=== PATIENT | female | born 1970 ===

== ENCOUNTER 2021-10-27 09:01 | Day surgery (SDC) | payer OTHER ==
[~2021-10-27 09:01] MED LIST: SODIUM CHLORIDE 0.9% 1000 ML 1,000 ML IV SCH
[2021-10-27] MEDS ORDERED: ONDANSETRON 4 MG/2 ML INJ ONE (09:43)
[2021-10-27] MEDS ORDERED: fentaNYL 100 MCG/2 ML INJ ONE (09:44)
[2021-10-27] MEDS ORDERED: propofoL 200 MG/20 ML VIAL IV ONE ×3 (10:34→13:51)
--- NOTE | 2021-10-27 10:56 | Procedure Note ---
Date of procedure: 10/27/21 Pre-op diagnosis: GERD/ Dyspepsia/ NSAID use/ Colon Polyp screening/ Abdominal Pain Post-op diagnosis: other (Mild to Moderate Erosive esophagitis/ R/o Eosinophilic esophaagitis/ Gastritis/ R/O Celiac Disease/ R/O Microscopic Colitis/ R/O Ileitis/ No Colon Polyps/ Few, Left Colon Diverticuli/ Minor, Internal Hemorrhoids) Procedure: EGD with Biopsy/ Colonoscopy with Biopsy Anesthesia: [facility] – [place] Surgeon: MINERVA LANDEROS Estimated blood loss: minimal Pathology: list Specimen disposition: to lab Condition: stable Disposition: same day (Treat with PPI, Bentyl prn, OTC Probiotic. Avoid aspirin and NSAID for 2 weeks, otherwise resume previous medication and F/U in 1 to 2 weeks ([phone]).)
--- NOTE | 2021-10-27 11:58 | Operative Report ---
DATE OF SURGERY: 10/27/2021 PROCEDURE PERFORMED: EGD with biopsy. INDICATIONS: This is a 51-year-old white, slightly obese white female with a history of taking Goody powders who has been having GERD symptoms and dyspeptic symptoms. EGD was done to assess for any significant upper GI pathology. DESCRIPTION OF PROCEDURE: Procedure was done after getting informed consent with MAC anesthesia. The instrument was passed through the hypopharynx into the esophagus, which showed some pmgj-jq-tldzefsl distal erosive esophagitis. Photodocumentation and biopsy was done from the distal esophagus to assess for the severity of the erosive esophagitis and from the mid esophagus to rule out for eosinophilic esophagitis. Stomach did not show any gastric ulcers in the straight or the retroverted view. Pylorus is patent. Duodenum in the first and second portion appeared normal. Biopsy was done from the second part to rule out for possible celiac disease. Additional biopsy was done from the gastric antrum, gastric body and angular incisura to rule out for H. pylori and atrophic gastritis. There was some antral gastritis noted. ASSESSMENT: 1. Gastroesophageal reflux disease symptoms, dyspepsia, and history of non-steroidal antiinflammatory drugs use. 2. Sslf-ju-gwpxngac erosive esophagitis. 3. Rule out eosinophilic esophagitis. 4. Gastritis. 5. Rule out celiac disease. 6. No peptic ulcer disease noted. PLAN: To treat the patient with PPI, have the patient avoid aspirin and aspirin-related products for the next 2 weeks. Otherwise, resume previous medication. Colonoscopy will be done as part of colon polyp screening and because of complaints of abdominal pain and the patient will be asked to follow up in the office in 1-2 weeks' time. Procedure was done in the GI lab with assistance of the GI lab team, which included the GI nurse, the dietetic technician registered and with assistance of anesthesia. TID: [id number] RECEIPT: [id number] CHRISTIE/DINAH
--- NOTE | 2021-10-27 18:38 | Anesthesia Day of Surgery ---
Anesthesia Day of Surgery - Day of Surgery Patient Examined: Yes Patient H&P Reviewed: Yes Patient is NPO: Yes
--- NOTE | 2021-10-27 18:40 | Post Anesthesia Evaluation ---
- Post Anesthesia Evaluation Patient Participated: Yes Airway Patent: Yes Stable Respiratory Function: Yes Nausea/Vomiting: No Temp > 96.8F: Yes Pain Manageable: Yes Adequeate Hydration: Yes Anesthesia Complications: No Block Receding Appropriately: Not Applicable Patient on Ventilator: No
--- NOTE | 2021-10-27 18:40 | Anesthesia Consultation ---
Anesthesia Consult and Med Hx Date of service: 10/27/21 - Pre-Operative Health Status ASA Pre-Surgery Classification: ASA2 Proposed Anesthetic Plan: MAC - Cardiovascular System Hx Hypertension: Yes - Central Nervous System CVA: Yes - Gastrointestinal Hx Ulcer: Yes Hx Gastroesophageal Reflux Disease: Yes - Endocrine Hx Non-Insulin Dependent Diabetes: Yes - Other Systems Hx Obesity: Yes
== END 2021-10-27 09:02 | disposition home or self-care (01) ==
LOC: GIO 09:01 → EDSEX 10:30
DX: K21.00 Gastro-esophageal reflux disease with esophagitis, without bleeding (principal); K29.70 Gastritis, unspecified, without bleeding; E66.9 Obesity, unspecified; E11.9 Type 2 diabetes mellitus without complications; I10 Essential (primary) hypertension; Z79.899 Other long term (current) drug therapy; Z68.33 Body mass index [BMI] 33.0-33.9, adult; Z86.73 Personal history of transient ischemic attack (TIA), and cerebral infarction without residual deficits
CPT/HCPCS: 82962; J2405; J2704; J3010; J7120

== ENCOUNTER 2021-10-27 11:18 | Day surgery (SDC) | payer OTHER ==
[2021-10-27 12:15] VITALS: BP 107/68
--- NOTE | 2021-10-27 12:46 | Operative Report ---
DATE OF SURGERY: 10/27/2021 PROCEDURE PERFORMED: Colonoscopy with biopsy. INDICATIONS: The patient is a 61-year-old slightly obese white female, who had an EGD done prior to the colonoscopy, which was done for colon polyp screening and for complaints of abdominal pain. EGD did not show any peptic ulcer disease, but did show [id number] erosive esophagitis and gastritis. DESCRIPTION OF PROCEDURE: Colonoscopy was done after getting informed consent with MAC anesthesia. Initial rectal examination was unremarkable. The instrument was passed through the rectum onto the cecum, which was identified with ileocecal valve and appendiceal orifice. Visualization was fair to good. Terminal ileum was intubated, showed normal mucosa. Biopsy was done to rule out for possible ileitis. Cecum, ascending colon, transverse colon showed normal mucosa. There were a few scattered diverticula noted in the left colon and the rectum showed some minor internal hemorrhoid on the retroverted view. Random biopsies were done to rule out for possible microscopic colitis with minimal bleeding. ASSESSMENT: Colon polyp screening, abdominal pain, rule out microscopic colitis, rule out ileitis. Few left colon diverticula noted. Minor internal hemorrhoid. PLAN: The patient will be asked to avoid aspirin and aspirin-related products for the next few days. Treat the patient with Bentyl for the abdominal pain. Also encouraged the patient to take ztav-hel-xvzjtsd probiotics as directed. The patient will also be placed on PPI because of the EGD findings of esophagitis and gastritis. The patient will be asked to follow up in the office in 1-2 weeks' time and also encouraged to take fiber supplements. Procedure was done in the GI lab with assistance of the GI lab team, which included the GI nurse, the technical support agent and with assistance of Anesthesia. TID: [id number] RECEIPT: [id number] CHRISTIE/FESTUS/TORO
--- NOTE | 2021-10-27 18:50 | Event Note ---
Date: 10/27/21 (Registration) Two account numbers. Charted in the other one.
== END 2021-10-27 11:40 | disposition home or self-care (01) ==
LOC: GIO 11:18
DX: R10.9 Unspecified abdominal pain (principal); R10.13 Epigastric pain; K64.8 Other hemorrhoids; K57.30 Diverticulosis of large intestine without perforation or abscess without bleeding; K29.70 Gastritis, unspecified, without bleeding; K21.00 Gastro-esophageal reflux disease with esophagitis, without bleeding; E11.9 Type 2 diabetes mellitus without complications; I10 Essential (primary) hypertension; E66.9 Obesity, unspecified; Z80.0 Family history of malignant neoplasm of digestive organs; Z88.0 Allergy status to penicillin; Z68.33 Body mass index [BMI] 33.0-33.9, adult; Z86.73 Personal history of transient ischemic attack (TIA), and cerebral infarction without residual deficits
CPT/HCPCS: 43239; 45380; 82962; 88305; 88342; J2405; J2704; J3010; J7030; J7120; Q0162